=== PATIENT | male | born 1955 ===

== ENCOUNTER 2021-11-09 12:40 | Day surgery (SDC) | payer BC, OTHER ==
[2021-11-09] MEDS ORDERED: NA CHLORIDE 0.9% 500 ML ONE (12:53)
[2021-11-09] MEDS ORDERED: CYCLOPENTOLATE 1% OPTH 2 ML ONE (12:54)
[2021-11-09] MEDS ORDERED: PHENYLEPHRINE 2.5% OPTH 2 ML ONE (12:54)
[2021-11-09] MEDS: PHENYLEPHRINE 10% OPTH 5ML OPTH ONE ×2 (13:21→13:26)
[2021-11-09] MEDS ORDERED: LIDOCAINE HCL/PF 3.5% OPTH GEL ONE (13:21)
[2021-11-09 13:24] LABS: SARS-CoV-2 Antigen Rapid Res Negative (Negative)
[2021-11-09] MEDS ORDERED: LIDOCAINE 1% MPF 5 ML VIAL ONE (14:51)
[2021-11-09] MEDS ORDERED: BSS OPTHALMIC SOL 15 ML OPTH ONE (14:53)
[2021-11-09] MEDS ORDERED: EPINEPHRINE/PF 1 MG/ML AMP ONE (14:53)
[2021-11-09] MEDS ORDERED: MOXIFLOXACIN HCL 10 DROPS/ML **OR USE OPTH ONE (14:53)
[2021-11-09] MEDS ORDERED: TRYPAN BLUE 0.5 ML SYR OPTH ONE (14:54)
[2021-11-09] MEDS ORDERED: POVIDONE-IODINE 5% EYE DROPS ONE (14:54)
[2021-11-09] MEDS ORDERED: BALANCED SALT IRRIG PLAIN 500 ML IRR ONE (14:54)
[2021-11-09] MEDS ORDERED: MIDAZOLAM HCL 2 MG/2 ML INJ ONE (15:23)
[2021-11-09] MEDS ORDERED: FENTANYL CITR 100 MCG/2 ML ONE (15:23)
[2021-11-09] MEDS ORDERED: DUOVISC 1 KIT OPTH ONE (16:23)
[2021-11-09 17:50] VITALS: BP 125/64; TEMP 97.5; O2SAT 100
--- NOTE | 2021-11-09 20:44 | OP ---
ate of Procedure: 11/09/2021 Surgeon: Samanta Mujica MD Anesthesiologist: Kiel García CRNA and Mika Rajan MD. Preoperative Diagnosis: Combined form of cataract, left eye. Operation Performed: Phacoemulsification with intraocular lens implant, left eye. Anesthesia: Topical anesthesia, per cataract surgery. Complications: None. Description Of Procedure: In day surgery, Akten gel was placed in the left eye In the operating room the patient was prepped and draped in the usual sterile fashion for ophthalmic surgery. A lid speculum was placed in the left eye. Two paracentesis sites were made superiorly and inferiorly in the limbal cornea. Preservative free lidocaine then Viscoat were placed in the anterior chamber. A keratome was used to enter the anterior chamber. A 360 degree capsulotomy was performed with utrata forceps. The lens was hydrodissected with BSS and rotated freely. The lens was removed with a stop and chop technique. 19.52 phaco CDE was used to remove the lens. Residual cortex was removed with the irrigation and aspiration. Provisc was placed in the capsular bag. A DCB00 +21.0 was placed in the capsular bag without complications. Irrigation and aspiration was used to remove residual viscoelastic. The paracentesis sites were hydrated with BSS. The wound and paracentesis sites were inspected and found to be watertight. Vigamox 0.07 cc was placed intracamerally at the end of the procedure. The eye was patched with a clear plastic shield. The patient was returned to day surgery in good condition. Comments: Lens was slightly loose and extra Viscoat was used. Discharge Instructions: Mr. Hope is discharged to home in good condition. He is to follow up with Dr. Mujica in the morning. JOVON/WERNER Voice ID: [id number] Report ID: [id number] MARTY
== END 2021-11-09 16:37 | disposition home or self-care (01) ==
LOC: OR 12:40
PROVIDERS: ATTEND Ophthalmology Retina Specialist
PROC: 08RK3JZ Replacement of Left Lens with Synthetic Substitute, Percutaneous Approach (ICD-10-PCS; principal; 2021-11-09 14:30)
DX: H25.812 Combined forms of age-related cataract, left eye (principal); H25.011 Cortical age-related cataract, right eye; H25.13 Age-related nuclear cataract, bilateral; H43.813 Vitreous degeneration, bilateral; H25.042 Posterior subcapsular polar age-related cataract, left eye; Z20.822 Contact with and (suspected) exposure to COVID-19
CPT/HCPCS: 36415; 87811; 66984; J0171; J2250; J3010; J7040